=== PATIENT | female | born 1950 | race Caucasian/White ===

== ENCOUNTER 2021-05-01 12:30 | Emergency (ER) | payer MEDICARE ==
[~2021-05-01] VITALS: Ht 170.2 cm; Wt 71.7 kg
[2021-05-01] MEDS ORDERED: ACETAMINOPHEN 325 MG TAB ONE (13:20)
[2021-05-01] MEDS ORDERED: ACETAMINOPHEN 325 MG TAB PO ONE (13:30)
[2021-05-01] MEDS ORDERED: ULTRAM 50MG50 MG PO (13:31)
[2021-05-01] MEDS ORDERED: METHYLPREDNISOLO4 M1 PO (13:31)
[2021-05-01] MEDS ORDERED: PREDNISONE 20 MG TAB PO ONE (14:30)
[2021-05-01] MEDS ORDERED: KETOROLAC TROMETHAMINE 30 MG/ML VIAL IM ONE (14:30)
== END 2021-05-01 14:05 | disposition home or self-care (01) ==
LOC: FSED 12:35
DX: M54.2 Cervicalgia (principal); M62.838 Other muscle spasm
CPT/HCPCS: 99282; J1885; J7512

== ENCOUNTER 2024-08-03 09:03 | Emergency (ER) | payer MEDICARE ==
[~2024-08-03] VITALS: Ht 170.2 cm; Wt 73.5 kg
[~2024-08-03 09:03] MED LIST: METHYLPREDNISOLO4 M1 PO; ULTRAM 50MG50 MG PO
[2024-08-03 09:08] VITALS: PULSE 80; RESP 16; TEMP 97.5
[2024-08-03] MEDS: IBUPROFEN 600 MG TAB PO STA (09:28)
[2024-08-03] MEDS ORDERED: IBUPROFEN600 MG PO (09:39)
[2024-08-03] MEDS ORDERED: ULTRAM 50MG50 MG PO (09:40)
[2024-08-03 11:08] VITALS: PULSE 78; RESP 16; TEMP 97.2; O2SAT 97
== END 2024-08-03 10:56 | disposition home or self-care (01) ==
LOC: FSED 09:13
DX: M25.531 Pain in right wrist (principal); S52.571A Other intraarticular fracture of lower end of right radius, initial encounter for closed fracture; W01.0XXA Fall on same level from slipping, tripping and stumbling without subsequent striking against object, initial encounter; Y93.01 Activity, walking, marching and hiking; Y92.89 Other specified places as the place of occurrence of the external cause
CPT/HCPCS: 99284